=== PATIENT | female | born 1955 | race Caucasian/White ===

== ENCOUNTER 2020-05-12 12:07 | Inpatient (IN) | payer MEDICARE, OTHER ==
[~2020-05-12] VITALS: Ht 149.9 cm; Wt 63.2 kg
[~2020-05-12 12:07] MED LIST: ACETAMINOPHEN-1 EAC1 PO; ASPIR 8181 MG PO; ASPIR-LOW81 MG PO; BACTRIM DS TAB1 EACH PO; CIPRO500 MG PO; CIPROFLOXACIN500 M1 PO; FLOMAX0.4 MG PO; GLUCOPHAGE1000 MG PO; GLUCOTROL10 MG PO; HYDROCODONE-AP1 EAC6 PO; LOPRESSOR25 PO; METFORMIN HCL500 MG PO; METOPROLOL TART25 MG PO; ONDANSETRON HCL4 M2 PO; TRADJENTA5 MG PO; XALATAN2.5 ML OPHTHALMIC; ZESTORETIC 20-1 EAC3 PO; ZOCOR40 MG PO; ZOFRAN4 MG PO
[2020-05-12 12:11] VITALS: BP 190/80
[2020-05-12] MEDS ORDERED: TRULICITY0.75 MG/0. (12:15)
[2020-05-12 12:50] LABS: ABSOLUTE MONOCYTES 0.6 thou/uL (0.0-1.2); ABSOLUTE NEUTROPHILS 5.9 thou/uL (1.6-8.1); BASOPHILS 0.2 %; HEMATOCRIT 37.7 % (37.0-47.0); HEMOGLOBIN 12.4 gm/dL (12.0-15.0); LYMPHOCYTES 12.8 %; MCH 26.5 pg (26.0-34.0); MCHC 32.8 g/dL (28.0-37.0); MCV 80.8 fL (80.0-100.0); MONOCYTES 7.5 %; MPV 8.9 fl. (7.2-11.1); NUCLEATED RBCS 0 /100WBC; PLATELET COUNT* 286 thou/uL (150-400); POLYS 79.5 %; RBC 4.67 mil/uL (4.20-5.00); RDW-CV 16.1 % (10.5-14.5); WBC 7.5 thou/uL (4.0-11.0)
[2020-05-12 12:59] LABS: CALCIUM 8.2 mg/dL (8.5-10.1); CREATININE 1.9 mg/dL (0.6-1.3)
[2020-05-12 13:05] LABS: POTASSIUM 5.3 mmol/L (3.5-5.1)
[2020-05-12 13:09] LABS: ALBUMIN 2.7 g/dL (3.4-5.0); TOTAL BILIRUBIN 0.6 mg/dL (<0.1-1.0); TOTAL PROTEIN 7.7 g/dL (6.4-8.2)
[2020-05-12 15:15] VITALS: BP 159/72
[2020-05-12 15:18] VITALS: BP 151/76
[2020-05-12 15:26] LABS: CALCIUM 8.2 mg/dL (8.5-10.1); CREATININE 1.9 mg/dL (0.6-1.3); POTASSIUM 5.5 mmol/L (3.5-5.1)
[2020-05-12 15:30] LABS: MAGNESIUM 2.5 mg/dL (1.8-2.4); PHOSPHORUS* 4.9 mg/dL (2.5-4.9)
[2020-05-12] MEDS ORDERED: SINGULAIR 10 MG10 M1 PO (16:37)
[2020-05-12] MEDS ORDERED: PLAVIX 75 MG TA75 MG PO (16:37)
[2020-05-12] MEDS ORDERED: ZETIA10 MG PO (16:38)
[2020-05-12] MEDS ORDERED: LATANOPROST 0.2.5 ML OPHTHALMIC (16:39)
[2020-05-12] MEDS ORDERED: LIPITOR40 MG PO (16:39)
[2020-05-12] MEDS ORDERED: CARVEDILOL25 MG PO (16:40)
[2020-05-12] MEDS ORDERED: HYDRALAZINE 2525 MG PO (16:40)
[2020-05-12] MEDS ORDERED: TRIAMTERENE/HCT1 CA1 PO (16:41)
--- NOTE | 2020-05-12 17:15 | EKG ---
[place] [address] ELECTROCARDIOGRAM REPORT Name: GLENDY GARCIA Room: [address] ADM IN M.R.#: [id number] Admission: 05/12/20 Attend Phys: Kirby Hurtado Discharge: Date of : 51 Date of Service: 05/12/20 1223 Report #: [id number] THIS REPORT FOR: //name// [facility] ED Test Date: 2020-05-12 Test Time: 12:23:08 Pat Name: GLENDY GARCIA Department: Room: [facility] Gender: F Glass Checker: NIKI : 1955 Requested By: Rogelio White Order Number: [id number] MD: Jamie Pop Measurements Intervals [place] Rate: 79 P: 28 LA: 141 QRS: -27 QRSD: 95 T: 5 QT: 431 QTc: 495 Interpretive Statements Sinus rhythm Left ventricular hypertrophy Anterior Q waves, possibly due to LVH Compared to ECG 03/18/2014 22:49:47 Left ventricular hypertrophy now present Q waves now present Sinus tachycardia no longer present ST (T wave) deviation no longer present Electronically Signed On 05-12-2020 17:14:46 [employer]SERVATION SCIENCE OFFICER by Jamie Pop [email or web address] <ELECTRONICALLY SIGNED> By: Jamie Pop MD, [facility] 05/12/20 1714 1223 1223 Jamie Pop MD, [facility] /EPI
[2020-05-12 18:53] VITALS: BP 170/67
[2020-05-12 20:00] VITALS: BP 186/77
[2020-05-13] VITALS (7 sets, daily range): BP systolic 102–147; BP diastolic 43–64
[2020-05-13 05:30] LABS: ABSOLUTE LYMPHOCYTES 0.8 thou/uL (0.8-5.3); ABSOLUTE MONOCYTES 0.4 thou/uL (0.0-1.2); ABSOLUTE NEUTROPHILS 3.7 thou/uL (1.6-8.1); BASOPHILS 0.1 %; HEMATOCRIT 36.5 % (37.0-47.0); HEMOGLOBIN 12.1 gm/dL (12.0-15.0); LYMPHOCYTES 15.8 %; MCH 26.5 pg (26.0-34.0); MCV 80.4 fL (80.0-100.0); MONOCYTES 8.1 %; MPV 8.8 fl. (7.2-11.1); NUCLEATED RBCS 0 /100WBC; PLATELET COUNT* 309 thou/uL (150-400); RBC 4.55 mil/uL (4.20-5.00); RDW-CV 16.2 % (10.5-14.5); WBC 4.9 thou/uL (4.0-11.0)
[2020-05-13 05:56] LABS: ALBUMIN 2.6 g/dL (3.4-5.0); CALCIUM 8.6 mg/dL (8.5-10.1); CREATININE 1.9 mg/dL (0.6-1.3); POTASSIUM 4.7 mmol/L (3.5-5.1); TOTAL BILIRUBIN 0.4 mg/dL (<0.1-1.0); TOTAL PROTEIN 7.5 g/dL (6.4-8.2)
[2020-05-14 04:15] VITALS: BP 109/68
[2020-05-14 05:30] LABS: HEMOGLOBIN 11.5 gm/dL (12.0-15.0); MCH 26.3 pg (26.0-34.0); MCHC 32.9 g/dL (28.0-37.0); MCV 79.8 fL (80.0-100.0); MPV 8.4 fl. (7.2-11.1); NUCLEATED RBCS 0 /100WBC; PLATELET COUNT* 347 thou/uL (150-400); RBC 4.39 mil/uL (4.20-5.00); RDW-CV 16.6 % (10.5-14.5); WBC 10.4 thou/uL (4.0-11.0)
[2020-05-14 06:04] LABS: ALBUMIN 2.5 g/dL (3.4-5.0); CALCIUM 8.8 mg/dL (8.5-10.1); POTASSIUM 4.5 mmol/L (3.5-5.1); TOTAL BILIRUBIN 0.3 mg/dL (<0.1-1.0)
[2020-05-14 07:21] LABS: ABSOLUTE LYMPHOCYTES 0.7 thou/uL (0.8-5.3); ABSOLUTE MONOCYTES 0.1 thou/uL (0.0-1.2); ABSOLUTE NEUTROPHILS 9.6 thou/uL (1.6-8.1); METAMYELOCYTES 1 %; PLATELET ESTIMATE ADEQUATE
[2020-05-14 08:00] VITALS: BP 136/61
[2020-05-14 13:37] VITALS: BP 130/58
[2020-05-14 16:16] VITALS: BP 116/48
[2020-05-14 20:00] VITALS: BP 115/46
--- NOTE | 2020-05-14 21:43 | CON ---
[address] [address] CONSULTATION Name: GLENDY GARCIA Room: [address] IN M.R.#: [id number] Admission: 05/12/20 Attend Phys: Yury Adams Discharge: Date of : 51 Report #: [id number] THIS REPORT FOR: cc: Reggie Mclean Vincent R. DO ~ Willy Shelby MD DATE OF SERVICE: 05/13/2020 REQUESTING PHYSICIAN: Consult has been requested by Dr. Hurtado. INDICATION FOR CONSULTATION: Acute hypoxemic respiratory failure secondary to COVID-19. HISTORY OF PRESENT ILLNESS: A 64-year-old female with past medical history as mentioned below. This does include a history of diabetes as well as hypertension and hyperlipidemia. The patient does not have any known history of smoking. At this time, the patient was now admitted yesterday with COVID-19. She was initially diagnosed on 05/04/2020 and has been having increasing shortness of breath as well as headaches, fever and chills. The patient has had a cough. This is with scanty sputum. The patient initially is reported to have had some chest discomfort as well. The patient was brought in by EMS. O2 saturation in the field was noted to be 81%. The patient is currently requiring around 10 liters of oxygen to maintain O2 saturation in the low 90s. She only complains of mild shortness of breath at rest at this time. She does not have swelling of lower extremities or calf pain at this time with the exception of some longstanding pain in her lower extremities, which is not significantly changed. The patient has had vascular surgery on lower extremities in the past. REVIEW OF SYSTEMS: The patient answers to the negative for 12 questions for review of systems except as mentioned above. PAST MEDICAL AND SURGICAL HISTORY: Diabetes, hypertension, hyperlipidemia; a vascular surgery on bilateral lower extremities, I do not have details available; kidney stones, hemorrhage in eyes, bilateral laser surgery in eyes due to elevated pressures, hand surgery, cholecystectomy. SOCIAL HISTORY: No known history of smoking, ethanol abuse or drug abuse. CURRENT MEDICATIONS: List in [employer] reviewed. HOME MEDICATIONS: List [place] [address] CONSULTATION Name: GLENDY GARCIA Room: [address]#: [id number] Admission: 05/12/20 Attend Phys: Yury Adams Discharge: Date of : 51 Report #: [id number] FAMILY HISTORY: No pertinent family history. PHYSICAL EXAMINATION: GENERAL: She is alert, awake and oriented, does not appear to be in any distress at this time. VITAL SIGNS: Pulse of 65 and a blood pressure of 103/49. Blood pressure initially was elevated, now is on the lower side. She is saturating 93%. She is on 10 liters nasal cannula, respiratory rate was 16 with a heart rate of 65. She is afebrile at this time with a temperature of 35.6. HEENT: Head is normocephalic and atraumatic. NECK: Does not show raised JVP, asymmetry, mass or lymph nodes. CHEST: Symmetrical expansion on inspection and palpation. On auscultation, chest is essentially clear. HEART: Regular, no murmur. ABDOMEN: Soft and nontender. EXTREMITIES: Lower extremities show no edema, no calf tenderness. SKIN: Dry and intact. NEUROLOGICAL: Moves all extremities bilaterally equally and spontaneously with no focal deficit identified. LABORATORY DATA: The patient's chest x-rays are reviewed and show bilateral infiltrates consistent with COVID-19. The patient's lab work is also reviewed. It is noted that the patient's creatinine is 1.9. The patient's baseline creatinine was 1.2 from 2017, I do not have a more recent creatinine available before this admission. The rest of the labs in [facility] are reviewed. ASSESSMENT AND PLAN: 1. Acute hypoxemic respiratory failure secondary to COVID-19. Recommend continuing to titrate oxygen. Recommend prone positioning when feasible in bed. Recommend out of bed to chair. I did not order BiPAP at this time; however, we will consider in case the patient's oxygen needs increase. 2. COVID-19. Agree with dexamethasone. I kept the current dose for now and noted that the patient's blood glucoses are elevated. If she fails to improve, then I will be inclined to increase the dose of dexamethasone. I also agree with remdesivir. We will continue to follow creatinine as well as LFTs closely. The patient has already received one unit of convalescent plasma. I will check a D-dimer. Note that the data regarding use of convalescent plasma is equivocal; however, expert's opinion and my understanding is that the risks are more when the D-dimer is greater than 4. If the patient fails to improve when the D-dimer is less than 3, then I will consider giving another unit of convalescent plasma tomorrow. 3. Pulmonary infiltrates. These primarily appear to be secondary to COVID-19. I therefore did not start any antibiotics at this time. I would, however, like to do a sputum culture if possible. We will [place] [address] CONSULTATION Name: GLENDY GARCIA Room: [address] IN [facility].#: [id number] Admission: 05/12/20 Attend Phys: Yury Adams Discharge: Date of : 51 Report #: [id number] methicillin-resistant Staphylococcus aureus and we will check a procalcitonin level to assess as to whether the patient will benefit from antibiotics later on. 4. Evaluation for thromboembolic phenomena. If the D-dimer is greater than 0.5, then I intend to obtain venous Dopplers tomorrow. As the patient is high risk for administration of IV dye; therefore, I will not consider a CTA chest at this time. 5. Renal failure, creatinine is elevated. I do not have a baseline creatinine available since 2017, it was 1.2 in 2017. We will do a renal ultrasound and rule out urinary tract obstruction. Note that the patient has had stones in the urinary tract in the past. 6. Diabetes. May consider adding a long-acting insulin. Recommend keeping blood glucoses less than 200. As above, it is possible that we need to increase the dose of dexamethasone if the patient fails to improve. 7. Hypertension. Blood pressure previously was elevated, now on the lower side. I favor running the blood pressure on the higher side. If the patient's blood pressure remains on the lower side, then consideration may be given to cutting back on antihypertensive medications. 8. Deep venous thrombosis prophylaxis. The patient is on Lovenox. Thanks for this consultation. <ELECTRONICALLY SIGNED> By: Willy Shelby MD 05/14/20 214 50 Athuan Shelby MD /nt
[2020-05-15] VITALS: BP 126/58
[2020-05-15 04:00] VITALS: BP 116/59
[2020-05-15 05:50] LABS: ABSOLUTE LYMPHOCYTES 0.6 thou/uL (0.8-5.3); ABSOLUTE MONOCYTES 0.5 thou/uL (0.0-1.2); ABSOLUTE NEUTROPHILS 10.1 thou/uL (1.6-8.1); BASOPHILS 0.1 %; HEMATOCRIT 35.8 % (37.0-47.0); HEMOGLOBIN 11.8 gm/dL (12.0-15.0); LYMPHOCYTES 5.1 %; MCH 26.3 pg (26.0-34.0); MCV 79.7 fL (80.0-100.0); MONOCYTES 4.5 %; MPV 8.5 fl. (7.2-11.1); NUCLEATED RBCS 0 /100WBC; PLATELET COUNT* 366 thou/uL (150-400); POLYS 90.3 %; RDW-CV 16.1 % (10.5-14.5); WBC 11.1 thou/uL (4.0-11.0)
[2020-05-15 06:01] LABS: ALBUMIN 2.5 g/dL (3.4-5.0); CALCIUM 8.4 mg/dL (8.5-10.1); CREATININE 1.8 mg/dL (0.6-1.3); MAGNESIUM 2.7 mg/dL (1.8-2.4); TOTAL BILIRUBIN 0.3 mg/dL (<0.1-1.0); TOTAL PROTEIN 6.8 g/dL (6.4-8.2)
[2020-05-15 08:00] VITALS: BP 109/52
[2020-05-15 12:00] VITALS: BP 136/67
[2020-05-15 18:17] VITALS: BP 89/51
[2020-05-15 23:53] VITALS: BP 126/63
[2020-05-16 04:00] VITALS: BP 132/51
[2020-05-16 05:34] LABS: ABSOLUTE LYMPHOCYTES 0.5 thou/uL (0.8-5.3); ABSOLUTE MONOCYTES 0.7 thou/uL (0.0-1.2); ABSOLUTE NEUTROPHILS 11.2 thou/uL (1.6-8.1); BASOPHILS 0.2 %; HEMATOCRIT 35.1 % (37.0-47.0); HEMOGLOBIN 11.9 gm/dL (12.0-15.0); LYMPHOCYTES 4.2 %; MCH 26.3 pg (26.0-34.0); MCHC 33.8 g/dL (28.0-37.0); MCV 77.9 fL (80.0-100.0); MONOCYTES 5.3 %; MPV 8.4 fl. (7.2-11.1); NUCLEATED RBCS 0 /100WBC; PLATELET COUNT* 377 thou/uL (150-400); POLYS 90.3 %; RBC 4.51 mil/uL (4.20-5.00); RDW-CV 16.1 % (10.5-14.5); WBC 12.4 thou/uL (4.0-11.0)
[2020-05-16 05:44] LABS: ALBUMIN 2.5 g/dL (3.4-5.0); CALCIUM 7.7 mg/dL (8.5-10.1); CREATININE 1.7 mg/dL (0.6-1.3); MAGNESIUM 2.6 mg/dL (1.8-2.4); TOTAL BILIRUBIN 0.4 mg/dL (<0.1-1.0)
[2020-05-16 10:25] VITALS: BP 106/55
[2020-05-16 16:09] VITALS: BP 124/55
[2020-05-16 21:05] VITALS: BP 134/53
[2020-05-17 04:00] VITALS: BP 126/65
[2020-05-17 05:49] LABS: ABSOLUTE LYMPHOCYTES 0.5 thou/uL (0.8-5.3); ABSOLUTE MONOCYTES 0.7 thou/uL (0.0-1.2); ABSOLUTE NEUTROPHILS 10.7 thou/uL (1.6-8.1); BASOPHILS 0.1 %; HEMATOCRIT 35.6 % (37.0-47.0); HEMOGLOBIN 11.8 gm/dL (12.0-15.0); LYMPHOCYTES 4.5 %; MCH 25.7 pg (26.0-34.0); MCHC 33.2 g/dL (28.0-37.0); MCV 77.5 fL (80.0-100.0); MONOCYTES 5.7 %; MPV 8.5 fl. (7.2-11.1); NUCLEATED RBCS 0 /100WBC; PLATELET COUNT* 380 thou/uL (150-400); POLYS 89.7 %; RBC 4.59 mil/uL (4.20-5.00); RDW-CV 16.1 % (10.5-14.5); WBC 11.9 thou/uL (4.0-11.0)
[2020-05-17 06:07] LABS: ALBUMIN 2.4 g/dL (3.4-5.0); CALCIUM 8.1 mg/dL (8.5-10.1); CREATININE 1.6 mg/dL (0.6-1.3); POTASSIUM 4.5 mmol/L (3.5-5.1); TOTAL BILIRUBIN 0.4 mg/dL (<0.1-1.0); TOTAL PROTEIN 6.4 g/dL (6.4-8.2)
[2020-05-17 07:58] VITALS: BP 124/60
[2020-05-17 12:30] VITALS: BP 113/56
[2020-05-17 15:59] VITALS: BP 126/66
[2020-05-17 20:10] VITALS: BP 114/50
[2020-05-18 00:08] VITALS: BP 106/40
[2020-05-18 04:08] VITALS: BP 116/54
[2020-05-18 06:05] LABS: HEMATOCRIT 35.2 % (37.0-47.0); HEMOGLOBIN 11.9 gm/dL (12.0-15.0); MCH 26.2 pg (26.0-34.0); MCV 77.2 fL (80.0-100.0); MPV 8.4 fl. (7.2-11.1); RBC 4.56 mil/uL (4.20-5.00); RDW-CV 15.8 % (10.5-14.5); WBC 14.1 thou/uL (4.0-11.0)
[2020-05-18 06:13] LABS: CALCIUM 7.9 mg/dL (8.5-10.1); CREATININE 1.5 mg/dL (0.6-1.3); POTASSIUM 4.6 mmol/L (3.5-5.1)
[2020-05-18 08:39] VITALS: BP 124/61
[2020-05-18 11:19] VITALS: BP 93/39
[2020-05-18 16:30] VITALS: BP 125/59
[2020-05-18 20:00] VITALS: BP 130/61
[2020-05-19] VITALS: BP 159/70
[2020-05-19 04:00] VITALS: BP 137/59
[2020-05-19 05:09] LABS: HEMATOCRIT 36.5 % (37.0-47.0); HEMOGLOBIN 12.2 gm/dL (12.0-15.0); MCH 25.9 pg (26.0-34.0); MCHC 33.3 g/dL (28.0-37.0); MCV 77.7 fL (80.0-100.0); MPV 8.6 fl. (7.2-11.1); RBC 4.7 mil/uL (4.20-5.00); WBC 13.8 thou/uL (4.0-11.0)
[2020-05-19 05:17] LABS: CALCIUM 7.2 mg/dL (8.5-10.1); CREATININE 1.8 mg/dL (0.6-1.3); POTASSIUM 5.1 mmol/L (3.5-5.1)
[2020-05-19 08:00] VITALS: BP 169/81
[2020-05-19 12:00] VITALS: BP 90/47
[2020-05-19 16:00] VITALS: BP 126/60
[2020-05-19 20:45] VITALS: BP 124/57
[2020-05-20 00:06] VITALS: BP 159/78
[2020-05-20 04:23] VITALS: BP 122/50
[2020-05-20 05:09] LABS: HEMATOCRIT 35.1 % (37.0-47.0); HEMOGLOBIN 11.8 gm/dL (12.0-15.0); MCHC 33.6 g/dL (28.0-37.0); MCV 77.4 fL (80.0-100.0); MPV 8.5 fl. (7.2-11.1); NUCLEATED RBCS 0 /100WBC; PLATELET COUNT* 408 thou/uL (150-400); RBC 4.53 mil/uL (4.20-5.00); WBC 12.7 thou/uL (4.0-11.0)
[2020-05-20 05:21] LABS: ALBUMIN 2.2 g/dL (3.4-5.0); CALCIUM 7.6 mg/dL (8.5-10.1); CREATININE 1.6 mg/dL (0.6-1.3); MAGNESIUM 2.6 mg/dL (1.8-2.4); POTASSIUM 4.7 mmol/L (3.5-5.1); TOTAL BILIRUBIN 0.5 mg/dL (<0.1-1.0); TOTAL PROTEIN 5.1 g/dL (6.4-8.2)
[2020-05-20 06:02] LABS: ABSOLUTE LYMPHOCYTES 0.3 thou/uL (0.8-5.3); ABSOLUTE MONOCYTES 0.3 thou/uL (0.0-1.2); ABSOLUTE NEUTROPHILS 12.2 thou/uL (1.6-8.1); ANISOCYTOSIS 1+; OVALOCYTES 1+; PLATELET ESTIMATE INCREASED; POIKILOCYTOSIS 1+
[2020-05-20 08:00] VITALS: BP 103/49
[2020-05-20 12:00] VITALS: BP 98/55
[2020-05-20 16:00] VITALS: BP 121/58
[2020-05-21 04:00] VITALS: BP 137/64
[2020-05-21 05:13] LABS: ABSOLUTE LYMPHOCYTES 0.4 thou/uL (0.8-5.3); ABSOLUTE MONOCYTES 0.7 thou/uL (0.0-1.2); BASOPHILS 0.1 %; HEMATOCRIT 31.9 % (37.0-47.0); HEMOGLOBIN 10.8 gm/dL (12.0-15.0); LYMPHOCYTES 2.8 %; MCH 26.1 pg (26.0-34.0); MCV 76.8 fL (80.0-100.0); MPV 8.5 fl. (7.2-11.1); NUCLEATED RBCS 0 /100WBC; PLATELET COUNT* 382 thou/uL (150-400); POLYS 92.1 %; RBC 4.15 mil/uL (4.20-5.00); RDW-CV 15.8 % (10.5-14.5); WBC 13.1 thou/uL (4.0-11.0)
[2020-05-21 05:38] LABS: CALCIUM 7.8 mg/dL (8.5-10.1); CREATININE 1.7 mg/dL (0.6-1.3); MAGNESIUM 2.6 mg/dL (1.8-2.4); PHOSPHORUS* 2.7 mg/dL (2.5-4.9); TOTAL BILIRUBIN 0.3 mg/dL (<0.1-1.0); TOTAL PROTEIN 5.2 g/dL (6.4-8.2)
[2020-05-21 08:00] VITALS: BP 140/55
[2020-05-21 12:00] VITALS: BP 122/54
[2020-05-21 16:00] VITALS: BP 128/54
[2020-05-21 20:00] VITALS: BP 148/62
[2020-05-22] VITALS (7 sets, daily range): BP systolic 103–144; BP diastolic 45–69
[2020-05-22 10:47] LABS: ABSOLUTE LYMPHOCYTES 0.3 thou/uL (0.8-5.3); ABSOLUTE MONOCYTES 0.3 thou/uL (0.0-1.2); ABSOLUTE NEUTROPHILS 11.4 thou/uL (1.6-8.1); BASOPHILS 0.2 %; HEMOGLOBIN 10.5 gm/dL (12.0-15.0); LYMPHOCYTES 2.2 %; MCHC 32.8 g/dL (28.0-37.0); MCV 79.3 fL (80.0-100.0); MONOCYTES 2.4 %; MPV 8.9 fl. (7.2-11.1); NUCLEATED RBCS 0 /100WBC; PLATELET COUNT* 376 thou/uL (150-400); POLYS 95.2 %; RBC 4.04 mil/uL (4.20-5.00); RDW-CV 16.1 % (10.5-14.5); WBC 11.9 thou/uL (4.0-11.0)
[2020-05-22 11:11] LABS: ALBUMIN 1.9 g/dL (3.4-5.0); CALCIUM 8.1 mg/dL (8.5-10.1); CREATININE 1.7 mg/dL (0.6-1.3); POTASSIUM 5.7 mmol/L (3.5-5.1); TOTAL BILIRUBIN 0.2 mg/dL (<0.1-1.0); TOTAL PROTEIN 5.3 g/dL (6.4-8.2)
[2020-05-23 03:50] VITALS: BP 118/58
[2020-05-23 05:38] LABS: ABSOLUTE BASOPHILS 0.1 thou/uL (0.0-0.2); ABSOLUTE LYMPHOCYTES 0.4 thou/uL (0.8-5.3); ABSOLUTE MONOCYTES 0.5 thou/uL (0.0-1.2); ABSOLUTE NEUTROPHILS 16.4 thou/uL (1.6-8.1); BASOPHILS 0.3 %; HEMATOCRIT 29.9 % (37.0-47.0); HEMOGLOBIN 10.2 gm/dL (12.0-15.0); LYMPHOCYTES 2.4 %; MCH 26.2 pg (26.0-34.0); MCHC 34.1 g/dL (28.0-37.0); MCV 76.8 fL (80.0-100.0); MONOCYTES 2.9 %; MPV 8.5 fl. (7.2-11.1); NUCLEATED RBCS 0 /100WBC; PLATELET COUNT* 373 thou/uL (150-400); POLYS 94.4 %; RDW-CV 15.9 % (10.5-14.5); WBC 17.3 thou/uL (4.0-11.0)
[2020-05-23 06:25] LABS: ALBUMIN 2.1 g/dL (3.4-5.0); CREATININE 1.7 mg/dL (0.6-1.3); POTASSIUM 5.5 mmol/L (3.5-5.1); TOTAL BILIRUBIN 0.4 mg/dL (<0.1-1.0); TOTAL PROTEIN 5.5 g/dL (6.4-8.2)
[2020-05-23 08:00] VITALS: BP 135/63
[2020-05-23 12:00] VITALS: BP 129/50
[2020-05-23 16:00] VITALS: BP 129/51
[2020-05-23 20:00] VITALS: BP 125/55
[2020-05-23 20:46] VITALS: BP 139/58
[2020-05-24] VITALS (7 sets, daily range): BP systolic 119–143; BP diastolic 49–60
[2020-05-24 01:11] LABS: HEMATOCRIT 27.6 % (37.0-47.0); HEMOGLOBIN 9.3 gm/dL (12.0-15.0); MCH 26.1 pg (26.0-34.0); MCHC 33.7 g/dL (28.0-37.0); MCV 77.4 fL (80.0-100.0); MPV 8.9 fl. (7.2-11.1); NUCLEATED RBCS 0 /100WBC; PLATELET COUNT* 331 thou/uL (150-400); RBC 3.56 mil/uL (4.20-5.00); RDW-CV 15.8 % (10.5-14.5); WBC 18.4 thou/uL (4.0-11.0)
[2020-05-24 01:28] LABS: ALBUMIN 1.9 g/dL (3.4-5.0); CALCIUM 8.3 mg/dL (8.5-10.1); CREATININE 1.9 mg/dL (0.6-1.3); POTASSIUM 5.6 mmol/L (3.5-5.1); TOTAL BILIRUBIN 0.3 mg/dL (<0.1-1.0); TOTAL PROTEIN 5.1 g/dL (6.4-8.2)
[2020-05-24 03:58] LABS: ABSOLUTE EOSINOPHILS 0.4 thou/uL (0.0-0.7); ABSOLUTE LYMPHOCYTES 0.2 thou/uL (0.8-5.3); ABSOLUTE MONOCYTES 0.7 thou/uL (0.0-1.2); ABSOLUTE NEUTROPHILS 17.1 thou/uL (1.6-8.1)
[2020-05-24 03:59] LABS: ANISOCYTOSIS 1+; PLATELET ESTIMATE ADEQUATE
[2020-05-25] VITALS (7 sets, daily range): BP systolic 116–142; BP diastolic 45–61
[2020-05-25 05:53] LABS: PLATELET COUNT* 320 thou/uL (150-400)
[2020-05-25 05:55] LABS: ABSOLUTE LYMPHOCYTES 0.3 thou/uL (0.8-5.3); ABSOLUTE MONOCYTES 0.8 thou/uL (0.0-1.2); ABSOLUTE NEUTROPHILS 17.9 thou/uL (1.6-8.1); BASOPHILS 0.1 %; HEMATOCRIT 26.3 % (37.0-47.0); LYMPHOCYTES 1.8 %; MCH 26.4 pg (26.0-34.0); MCV 77.4 fL (80.0-100.0); MONOCYTES 4.2 %; MPV 9.2 fl. (7.2-11.1); NUCLEATED RBCS 0 /100WBC; POLYS 93.9 %; RDW-CV 15.8 % (10.5-14.5); WBC 19.1 thou/uL (4.0-11.0)
[2020-05-25 06:28] LABS: ALBUMIN 1.9 g/dL (3.4-5.0); CALCIUM 8.2 mg/dL (8.5-10.1); CREATININE 1.8 mg/dL (0.6-1.3); POTASSIUM 5.7 mmol/L (3.5-5.1); TOTAL BILIRUBIN 0.4 mg/dL (<0.1-1.0); TOTAL PROTEIN 5.2 g/dL (6.4-8.2)
[2020-05-26 04:21] LABS: ABSOLUTE LYMPHOCYTES 0.5 thou/uL (0.8-5.3); ABSOLUTE MONOCYTES 0.4 thou/uL (0.0-1.2); BASOPHILS 0.3 %; HEMATOCRIT 24.8 % (37.0-47.0); HEMOGLOBIN 8.3 gm/dL (12.0-15.0); LYMPHOCYTES 2.9 %; MCH 26.2 pg (26.0-34.0); MCHC 33.3 g/dL (28.0-37.0); MCV 78.7 fL (80.0-100.0); MONOCYTES 2.5 %; NUCLEATED RBCS 0 /100WBC; PLATELET COUNT* 279 thou/uL (150-400); POLYS 94.3 %; RBC 3.16 mil/uL (4.20-5.00); RDW-CV 16.1 % (10.5-14.5)
[2020-05-26 04:35] VITALS: BP 124/52
[2020-05-26 04:39] LABS: ALBUMIN 1.9 g/dL (3.4-5.0); CALCIUM 7.9 mg/dL (8.5-10.1); CREATININE 1.7 mg/dL (0.6-1.3); POTASSIUM 5.6 mmol/L (3.5-5.1); TOTAL BILIRUBIN 0.3 mg/dL (<0.1-1.0); TOTAL PROTEIN 5.4 g/dL (6.4-8.2)
[2020-05-26 04:58] VITALS: BP 140/60
[2020-05-26 08:08] VITALS: BP 141/74
[2020-05-26 09:29] LABS: APTT 22.1 Seconds (25.0-31.3); PROTIME 10.6 Seconds (9.20-11.50)
[2020-05-26 12:21] VITALS: BP 142/65
[2020-05-26 15:58] VITALS: BP 128/55
[2020-05-26 23:58] VITALS: BP 133/86
[2020-05-27 04:26] VITALS: BP 132/58
[2020-05-27 04:40] LABS: HEMATOCRIT 23.7 % (37.0-47.0); MCH 26.1 pg (26.0-34.0); MCHC 33.8 g/dL (28.0-37.0); MCV 77.3 fL (80.0-100.0); MPV 8.8 fl. (7.2-11.1); NUCLEATED RBCS 0 /100WBC; PLATELET COUNT* 275 thou/uL (150-400); RBC 3.07 mil/uL (4.20-5.00); RDW-CV 16.3 % (10.5-14.5); WBC 14.5 thou/uL (4.0-11.0)
[2020-05-27 04:49] LABS: ALBUMIN 2.6 g/dL (3.4-5.0); CALCIUM 8.6 mg/dL (8.5-10.1); CREATININE 1.7 mg/dL (0.6-1.3); TOTAL BILIRUBIN 0.5 mg/dL (<0.1-1.0); TOTAL PROTEIN 5.7 g/dL (6.4-8.2)
[2020-05-27 05:52] LABS: ABSOLUTE LYMPHOCYTES 0.7 thou/uL (0.8-5.3); ABSOLUTE MONOCYTES 0.1 thou/uL (0.0-1.2); ABSOLUTE NEUTROPHILS 13.6 thou/uL (1.6-8.1); ANISOCYTOSIS 1+; PLATELET ESTIMATE ADEQUATE; POIKILOCYTOSIS 1+
[2020-05-27 12:00] VITALS: BP 101/51; BP 111/49
[2020-05-27 16:00] VITALS: BP 101/51
[2020-05-27 23:46] VITALS: BP 146/63
[2020-05-28 04:00] VITALS: BP 135/55
[2020-05-28 04:10] LABS: HEMATOCRIT 23.1 % (37.0-47.0); HEMOGLOBIN 7.7 gm/dL (12.0-15.0); MCH 26.3 pg (26.0-34.0); MCHC 33.3 g/dL (28.0-37.0); MCV 78.8 fL (80.0-100.0); MPV 9.1 fl. (7.2-11.1); RBC 2.93 mil/uL (4.20-5.00); RDW-CV 16.2 % (10.5-14.5); WBC 14.4 thou/uL (4.0-11.0)
[2020-05-28 04:34] LABS: ALBUMIN 2.3 g/dL (3.4-5.0); CALCIUM 8.2 mg/dL (8.5-10.1); CREATININE 1.8 mg/dL (0.6-1.3); POTASSIUM 4.7 mmol/L (3.5-5.1); TOTAL BILIRUBIN 0.4 mg/dL (<0.1-1.0); TOTAL PROTEIN 5.6 g/dL (6.4-8.2)
[2020-05-28 08:00] VITALS: BP 123/59
[2020-05-28 12:27] VITALS: BP 96/53
[2020-05-28 19:45] VITALS: BP 117/48
[2020-05-29 00:50] VITALS: BP 108/48
[2020-05-29 04:00] VITALS: BP 99/52
[2020-05-29 04:42] LABS: HEMATOCRIT 25.1 % (37.0-47.0); HEMOGLOBIN 8.4 gm/dL (12.0-15.0); MCH 26.4 pg (26.0-34.0); MCHC 33.3 g/dL (28.0-37.0); MCV 79.3 fL (80.0-100.0); MPV 9.2 fl. (7.2-11.1); RBC 3.16 mil/uL (4.20-5.00); RDW-CV 15.7 % (10.5-14.5); WBC 19.7 thou/uL (4.0-11.0)
[2020-05-29 05:08] LABS: ALBUMIN 2.4 g/dL (3.4-5.0); CALCIUM 8.1 mg/dL (8.5-10.1); MAGNESIUM 3.4 mg/dL (1.8-2.4); TOTAL BILIRUBIN 0.5 mg/dL (<0.1-1.0); TOTAL PROTEIN 6.1 g/dL (6.4-8.2)
[2020-05-29 08:00] VITALS: BP 118/43
--- NOTE | 2020-05-29 09:44 | EKG ---
[place] [address] ELECTROCARDIOGRAM REPORT Name: GLENDY GARCIA Room: [address] ADM IN M.R.#: [id number] Admission: 05/12/20 Attend Phys: Kirby Hurtado Discharge: Date of : 51 Date of Service: 05/28/20 1853 Report #: [id number] THIS REPORT FOR: //name// [facility] Test Date: 2020-05-28 Test Time: 18:53:15 Pat Name: GLENDY GARCIA Department: Room: [address] Gender: F Email Engineer: AT : 1955 Requested By: Monica Kent Order Number: [id number] Reading MD: Waqar Woods Measurements Intervals [place] Rate: 79 P: 45 MN: 134 QRS: -15 QRSD: 104 T: 59 QT: 407 QTc: 467 Interpretive Statements Sinus rhythm Borderline left axis deviation Abnormal R-wave progression, late transition Minimal ST depression, lateral leads Compared to ECG 05/12/2020 12:23:08 ST (T wave) deviation now present Left ventricular hypertrophy no longer present Q waves no longer present Electronically Signed On 05-29-2020 9:43:54 WARE FINISHER by Waqar Woods [email or web address] <ELECTRONICALLY SIGNED> By: Waqar Woods MD, [facility] 05/29/20 0943 52 52 Waqar Woods MD, [facility] /EPI
[2020-05-29 12:00] VITALS: BP 113/43
[2020-05-29 16:00] VITALS: BP 120/51
[2020-05-29 20:30] VITALS: BP 144/53
[2020-05-30] VITALS (7 sets, daily range): BP systolic 111–146; BP diastolic 53–65
[2020-05-30 04:44] LABS: ABSOLUTE LYMPHOCYTES 0.4 thou/uL (0.8-5.3); ABSOLUTE MONOCYTES 0.2 thou/uL (0.0-1.2); ABSOLUTE NEUTROPHILS 9.7 thou/uL (1.6-8.1); BASOPHILS 0.1 %; EOSINOPHILS 0.1 %; HEMATOCRIT 21.4 % (37.0-47.0); HEMOGLOBIN 7.3 gm/dL (12.0-15.0); LYMPHOCYTES 3.7 %; MCHC 34.2 g/dL (28.0-37.0); MCV 78.9 fL (80.0-100.0); MONOCYTES 2.4 %; NUCLEATED RBCS 0 /100WBC; POLYS 93.7 %; RBC 2.72 mil/uL (4.20-5.00); RDW-CV 16.2 % (10.5-14.5); WBC 10.4 thou/uL (4.0-11.0)
[2020-05-30 04:54] LABS: PLATELET COUNT* 201 thou/uL (150-400)
[2020-05-30 05:16] LABS: ALBUMIN 2.1 g/dL (3.4-5.0); CALCIUM 8.2 mg/dL (8.5-10.1); CREATININE 1.6 mg/dL (0.6-1.3); MAGNESIUM 3.2 mg/dL (1.8-2.4); POTASSIUM 4.5 mmol/L (3.5-5.1); TOTAL BILIRUBIN 0.4 mg/dL (<0.1-1.0); TOTAL PROTEIN 5.5 g/dL (6.4-8.2)
[2020-05-30 17:31] LABS: HEMATOCRIT 29.3 % (37.0-47.0)
[2020-05-30 17:34] LABS: HEMOGLOBIN 9.9 gm/dL (12.0-15.0)
[2020-05-31 03:35] VITALS: BP 136/66
[2020-05-31 04:36] LABS: HEMATOCRIT 27.7 % (37.0-47.0); HEMOGLOBIN 9.3 gm/dL (12.0-15.0); MCH 27.7 pg (26.0-34.0); MCHC 33.5 g/dL (28.0-37.0); MCV 82.9 fL (80.0-100.0); NUCLEATED RBCS 0 /100WBC; PLATELET COUNT* 172 thou/uL (150-400); RBC 3.34 mil/uL (4.20-5.00); RDW-CV 16.7 % (10.5-14.5); WBC 11.4 thou/uL (4.0-11.0)
[2020-05-31 04:55] LABS: ALBUMIN 2.1 g/dL (3.4-5.0); CREATININE 1.4 mg/dL (0.6-1.3); MAGNESIUM 2.8 mg/dL (1.8-2.4); POTASSIUM 4.5 mmol/L (3.5-5.1); TOTAL BILIRUBIN 0.4 mg/dL (<0.1-1.0); TOTAL PROTEIN 5.4 g/dL (6.4-8.2)
[2020-05-31 07:12] LABS: ABSOLUTE LYMPHOCYTES 0.6 thou/uL (0.8-5.3); ABSOLUTE NEUTROPHILS 10.8 thou/uL (1.6-8.1); BURR CELLS Occasional; PLATELET ESTIMATE ADEQUATE
[2020-05-31 08:00] VITALS: BP 116/50
[2020-05-31 11:53] VITALS: BP 175/45
[2020-05-31 16:05] VITALS: BP 113/40
[2020-05-31 20:00] VITALS: BP 132/52
[2020-05-31 23:45] VITALS: BP 130/61
[2020-06-01 04:32] LABS: HEMOGLOBIN 9.3 gm/dL (12.0-15.0); MCH 27.5 pg (26.0-34.0); MCHC 33.2 g/dL (28.0-37.0); MCV 82.9 fL (80.0-100.0); MPV 8.7 fl. (7.2-11.1); RBC 3.38 mil/uL (4.20-5.00); RDW-CV 16.9 % (10.5-14.5)
[2020-06-01 04:43] LABS: ALBUMIN 2.1 g/dL (3.4-5.0); CREATININE 1.4 mg/dL (0.6-1.3); MAGNESIUM 2.5 mg/dL (1.8-2.4); POTASSIUM 4.4 mmol/L (3.5-5.1); TOTAL BILIRUBIN 0.4 mg/dL (<0.1-1.0); TOTAL PROTEIN 5.4 g/dL (6.4-8.2)
[2020-06-01 08:00] VITALS: BP 115/51
[2020-06-01 12:00] VITALS: BP 129/58
[2020-06-01 16:00] VITALS: BP 138/53
[2020-06-01 20:00] VITALS: BP 123/56
[2020-06-02] VITALS: BP 118/51
[2020-06-02 04:37] LABS: HEMATOCRIT 27.2 % (37.0-47.0); HEMOGLOBIN 9.2 gm/dL (12.0-15.0); MCH 27.9 pg (26.0-34.0); MCV 82.1 fL (80.0-100.0); MPV 8.8 fl. (7.2-11.1); RBC 3.31 mil/uL (4.20-5.00); RDW-CV 17.3 % (10.5-14.5)
[2020-06-02 05:07] VITALS: BP 127/53
[2020-06-02 05:17] LABS: ALBUMIN 2.8 g/dL (3.4-5.0); CALCIUM 8.3 mg/dL (8.5-10.1); CREATININE 1.5 mg/dL (0.6-1.3); MAGNESIUM 2.3 mg/dL (1.8-2.4); POTASSIUM 4.1 mmol/L (3.5-5.1); TOTAL BILIRUBIN 0.5 mg/dL (<0.1-1.0); TOTAL PROTEIN 5.8 g/dL (6.4-8.2)
[2020-06-02 08:00] VITALS: BP 118/52
[2020-06-02 12:00] VITALS: BP 122/48
[2020-06-02 16:00] VITALS: BP 136/58
[2020-06-02 20:00] VITALS: BP 157/47
[2020-06-03 00:02] VITALS: BP 129/57
[2020-06-03 04:33] LABS: HEMATOCRIT 26.7 % (37.0-47.0); HEMOGLOBIN 9.1 gm/dL (12.0-15.0); MCHC 34.1 g/dL (28.0-37.0); MCV 82.1 fL (80.0-100.0); MPV 8.6 fl. (7.2-11.1); NUCLEATED RBCS 0 /100WBC; PLATELET COUNT* 147 thou/uL (150-400); RBC 3.25 mil/uL (4.20-5.00); RDW-CV 17.4 % (10.5-14.5); WBC 11.9 thou/uL (4.0-11.0)
[2020-06-03 04:42] VITALS: BP 132/57
[2020-06-03 04:46] LABS: ALBUMIN 2.5 g/dL (3.4-5.0); CREATININE 1.4 mg/dL (0.6-1.3); MAGNESIUM 2.4 mg/dL (1.8-2.4); POTASSIUM 4.4 mmol/L (3.5-5.1); TOTAL BILIRUBIN 0.4 mg/dL (<0.1-1.0); TOTAL PROTEIN 5.3 g/dL (6.4-8.2)
[2020-06-03 05:48] LABS: ABSOLUTE LYMPHOCYTES 0.7 thou/uL (0.8-5.3); ABSOLUTE MONOCYTES 0.1 thou/uL (0.0-1.2); ABSOLUTE NEUTROPHILS 11.1 thou/uL (1.6-8.1)
[2020-06-03 05:49] LABS: ANISOCYTOSIS 1+; PLATELET ESTIMATE DECREASED; POIKILOCYTOSIS 1+
[2020-06-03 09:00] VITALS: BP 143/58
[2020-06-03 12:00] VITALS: BP 134/60
[2020-06-03 16:00] VITALS: BP 109/40
[2020-06-03 20:00] VITALS: BP 150/61
[2020-06-04] VITALS: BP 125/62
[2020-06-04 04:24] LABS: ABSOLUTE LYMPHOCYTES 0.6 thou/uL (0.8-5.3); ABSOLUTE MONOCYTES 0.4 thou/uL (0.0-1.2); ABSOLUTE NEUTROPHILS 8.5 thou/uL (1.6-8.1); BASOPHILS 0.1 %; EOSINOPHILS 0.3 %; HEMATOCRIT 26.5 % (37.0-47.0); HEMOGLOBIN 8.9 gm/dL (12.0-15.0); LYMPHOCYTES 5.8 %; MCH 28.3 pg (26.0-34.0); MCHC 33.6 g/dL (28.0-37.0); MCV 84.3 fL (80.0-100.0); MONOCYTES 4.7 %; MPV 8.3 fl. (7.2-11.1); NUCLEATED RBCS 0 /100WBC; PLATELET COUNT* 128 thou/uL (150-400); POLYS 89.1 %; RBC 3.14 mil/uL (4.20-5.00); RDW-CV 18.1 % (10.5-14.5); WBC 9.5 thou/uL (4.0-11.0)
[2020-06-04 05:02] LABS: ALBUMIN 2.3 g/dL (3.4-5.0); CREATININE 1.3 mg/dL (0.6-1.3); POTASSIUM 4.6 mmol/L (3.5-5.1); TOTAL BILIRUBIN 0.5 mg/dL (<0.1-1.0); TOTAL PROTEIN 4.9 g/dL (6.4-8.2)
[2020-06-04 06:22] VITALS: BP 129/59
[2020-06-04 07:20] VITALS: BP 134/53
[2020-06-04] MEDS ORDERED: HYDROCODON-ACE1 EAC7 PO (10:52)
[2020-06-04] MEDS ORDERED: XANAX 0.25 MG0.25 MG PO (10:52)
[2020-06-04 11:37] VITALS: BP 139/59
[2020-06-04 14:42] VITALS: BP 139/59
== END 2020-06-04 17:37 | DRG 177 ==
LOC: M.ERS 12:07 → M.2W 13:30 → M.TBA-ER 13:30 → M.ORTHSURG 13:30 → M.2W 05-23 20:00
PROVIDERS: Emergency Medicine Emergency Medical Services; Family Medicine; Internal Medicine; Internal Medicine Critical Care Medicine; ADMIT Internal Medicine; ATTEND Internal Medicine
PROC: XW033E5 Introduction of Remdesivir Anti-infective into Peripheral Vein, Percutaneous Approach, New Technology Group 5 (ICD-10-PCS; principal; 2020-05-12)
PROC: 5A0935A Assistance with Respiratory Ventilation, Less than 24 Consecutive Hours, High Flow/Velocity Cannula (ICD-10-PCS; principal; 2020-05-12)
PROC: XW13325 Transfusion of Convalescent Plasma (Nonautologous) into Peripheral Vein, Percutaneous Approach, New Technology Group 5 (ICD-10-PCS; principal; 2020-05-12)
PROC: 5A0935A Assistance with Respiratory Ventilation, Less than 24 Consecutive Hours, High Flow/Velocity Cannula (ICD-10-PCS; 2020-05-13)
PROC: 5A0935A Assistance with Respiratory Ventilation, Less than 24 Consecutive Hours, High Flow/Velocity Cannula (ICD-10-PCS; 2020-05-14)
PROC: 5A0935A Assistance with Respiratory Ventilation, Less than 24 Consecutive Hours, High Flow/Velocity Cannula (ICD-10-PCS; 2020-05-15)
PROC: 5A0935A Assistance with Respiratory Ventilation, Less than 24 Consecutive Hours, High Flow/Velocity Cannula (ICD-10-PCS; 2020-05-16)
PROC: 5A0935A Assistance with Respiratory Ventilation, Less than 24 Consecutive Hours, High Flow/Velocity Cannula (ICD-10-PCS; 2020-05-17)
PROC: 5A0935A Assistance with Respiratory Ventilation, Less than 24 Consecutive Hours, High Flow/Velocity Cannula (ICD-10-PCS; 2020-05-18)
PROC: 5A0935A Assistance with Respiratory Ventilation, Less than 24 Consecutive Hours, High Flow/Velocity Cannula (ICD-10-PCS; 2020-05-19)
PROC: 5A0935A Assistance with Respiratory Ventilation, Less than 24 Consecutive Hours, High Flow/Velocity Cannula (ICD-10-PCS; 2020-05-20)
PROC: 5A0935A Assistance with Respiratory Ventilation, Less than 24 Consecutive Hours, High Flow/Velocity Cannula (ICD-10-PCS; 2020-05-21)
PROC: 5A09357 Assistance with Respiratory Ventilation, Less than 24 Consecutive Hours, Continuous Positive Airway Pressure (ICD-10-PCS; 2020-05-22)
PROC: 5A0935A Assistance with Respiratory Ventilation, Less than 24 Consecutive Hours, High Flow/Velocity Cannula (ICD-10-PCS; 2020-05-22)
PROC: 5A0935A Assistance with Respiratory Ventilation, Less than 24 Consecutive Hours, High Flow/Velocity Cannula (ICD-10-PCS; 2020-05-23)
PROC: 5A0935A Assistance with Respiratory Ventilation, Less than 24 Consecutive Hours, High Flow/Velocity Cannula (ICD-10-PCS; 2020-05-24)
PROC: 5A0955A Assistance with Respiratory Ventilation, Greater than 96 Consecutive Hours, High Flow/Velocity Cannula (ICD-10-PCS; 2020-05-27)
PROC: 30233N1 Transfusion of Nonautologous Red Blood Cells into Peripheral Vein, Percutaneous Approach (ICD-10-PCS; 2020-05-30)
DX: U07.1 COVID-19 (principal); J96.01 Acute respiratory failure with hypoxia; J12.82 Pneumonia due to coronavirus disease 2019; E43 Unspecified severe protein-calorie malnutrition; J69.0 Pneumonitis due to inhalation of food and vomit; N17.9 Acute kidney failure, unspecified; E87.1 Hypo-osmolality and hyponatremia; B37.0 Candidal stomatitis; E78.5 Hyperlipidemia, unspecified; I10 Essential (primary) hypertension; E11.9 Type 2 diabetes mellitus without complications; E66.01 Morbid (severe) obesity due to excess calories; E87.5 Hyperkalemia; D64.9 Anemia, unspecified; J98.2 Interstitial emphysema; R04.0 Epistaxis; Z90.49 Acquired absence of other specified parts of digestive tract; Z79.82 Long term (current) use of aspirin; Z79.899 Other long term (current) drug therapy; Z79.84 Long term (current) use of oral hypoglycemic drugs; Z88.5 Allergy status to narcotic agent; Z68.28 Body mass index [BMI] 28.0-28.9, adult

== ENCOUNTER → 2020-08-13 | Outpatient (CLI) | payer MEDICARE, OTHER ==
[~2020-08-13] MED LIST changes: +CARVEDILOL25 MG PO; +HYDRALAZINE 2525 MG PO; +HYDROCODON-ACE1 EAC7 PO; +LATANOPROST 0.2.5 ML OPHTHALMIC; +LIPITOR40 MG PO; +PLAVIX 75 MG TA75 MG PO; +SINGULAIR 10 MG10 M1 PO; +TRIAMTERENE/HCT1 CA1 PO; +TRULICITY0.75 MG/0.; +XANAX 0.25 MG0.25 MG PO; +ZETIA10 MG PO
== END ==
LOC: M.LAB 15:06
PROVIDERS: ATTEND Internal Medicine Critical Care Medicine
DX: J96.01 Acute respiratory failure with hypoxia (principal); R60.0 Localized edema